=== PATIENT | male | born 1960 | race Caucasian/White ===

== ENCOUNTER 2023-08-24 10:25 | Day surgery (SDC) | payer OTHER ==
[2023-08-17 13:29] VITALS: BP 141/75
[~2023-08-24] VITALS: Ht 182.9 cm; Wt 122.7 kg
[~2023-08-24 10:25] MED LIST: ACETAMINOPHN-B1 EACH PO; ADVAIR HFA 230-12 GM; ALLOPURINOL300 MG PO; CARDIZEM CD360 MG PO; CELEBREX200 MG PO; CYMBALTA60 MG PO; FLOMAX0.4 MG PO; IBLOOD GLUCOSE TEST STRIP 1 EA TEST VI PRN; K-TAB ER20 MEQ PO; LACTATED RINGER'S 1,000 ML IV SCH; LASIX20 MG PO; LIDOCAINE HCL 1% 5 ML SDV INJ ONE; LISINOPRIL-HCT1 EAC2 PO; LYRICA150 MG PO; MIDAZOLAM HCL 5 MG/5 ML VIAL IV PRN; MILK OF MA400 MG/5 M PO; MULTI VITAMIN1 EACH PO; NEURONTIN300 MG PO; NORVASC10 MG PO; OXYBUTYNIN CHLOR5 M1 PO; PROCTOCREAM-HC30 GM; PROSCAR5 MG PO; PROTONIX40 MG PO; ROXICODONE15 MG PO; SINGULAIR10 MG PO; SPIRIVA RESPIMAT4 GM INH; SYNTHROID100 MCG PO; TELMISARTAN80 MG PO; TOPROL XL100 MG PO; TYLENOL #4; TYLENOL EXTRA500 MG PO; ULTRAM50 MG; VENTOLIN HFA18 GM INH; VIAGRA25 MG PO; ZANAFLEX4 M1 PO; ZOLOFT100 MG PO; fentaNYL citrate 100 MCG/2 ML VIAL IV PRN
[2023-08-24 11:01] LABS: BASOPHILS 0.8 % (0-2); BASOPHILS, ABSOLUTE 0 %; EOSINOPHILS, ABSOLUTE 0.1; HEMATOCRIT 43.9 % (35.0-50.0); HEMOGLOBIN 14.8 g/dL (12.0-18.0); LYMPHOCYTES 31.9 % (24-44); LYMPHOCYTES, ABSOLUTE 1.5; MCH 30.2 (27-36); MCHC 33.8 g/dl (30-36); MCV 89.5 fl (81-99); MONOCYTES 13.4 % (0-12); MONOCYTES, ABSOLUTE 0.7; NEUTROPHILS 51.9 % (39-80); NEUTROPHILS, ABSOLUTE 2.5; PLATELET COUNT 234 K/uL (140-440); RDW 14.6 (10.5-15.0)
[2023-08-24] MEDS ORDERED: ADVAIR HFA 230-12 GM INH (11:01)
[2023-08-24] MEDS ORDERED: CETIRIZINE HCL10 MG PO (11:03)
[2023-08-24 11:04] VITALS: BP 155/72
[2023-08-24] MEDS ORDERED: LIDOCAINE HCL 2% 5 ML SDV ONE (11:58)
[2023-08-24] MEDS ORDERED: propofoL 200 MG/20 ML VIAL ONE (11:58)
[2023-08-24] MEDS ORDERED: fentaNYL citrate 100 MCG/2 ML VIAL ONE (11:59)
[2023-08-24 12:12] LABS: ERYTHROCYTE SEDIMENTATION RATE 7
[2023-08-24] MEDS ORDERED: ondansetron HCL 4 MG/2 ML VIAL ONE (12:21)
--- NOTE | 2023-08-24 12:28 | NUR ---
08/24/23 Christen8 Lucy Barrera 1223-PATIENT ARRIVED TO PACU ON RA AWAKE HOB ELEVATED SEMI FOWLERS. RA 95% RR EVEN. PATIENT REPORTS BONE MARROW BX PAIN "1" BACK PAIN "3" HAS CHRONIC BACK PAIN. BILATERAL BANDAIDS TO BACK. DENIES NAUSEA. SR. IVF INFUSING
[2023-08-24 12:44] VITALS: BP 146/66
--- NOTE | 2023-08-24 14:14 | EKG ---
[facility] [address] [facility] [place] [address] Signed Normal sinus rhythm Normal ECG When compared with ECG of 14-AUG-2020 10:50, No significant change was found Confirmed by SONU SPENCER MD ([id number]) on 08/24/2023 2:14:00 PM Electronically Signed By: SONU SPENCER 08/24/23 1414 PATIENT NAME: PAULY BRADFORD Electrocardiogram DATE OF : 64 PHYSICIAN: SONU SPENCER REPORT #: [id number] REPORT IS CONFIDENTIAL AND NOT TO BE RELEASED WITHOUT AUTHORIZATION
[2023-08-25 18:01] LABS: IMMUNOGLOBULIN A 227 mg/dL (68-408); IMMUNOGLOBULIN G 1113 mg/dL (768-1632); IMMUNOGLOBULIN M 90 mg/dL (35-263); KAPPA QNT FREE LIGHT CHAINS 20.95 mg/L (3.30-19.40); KAPPA/LAMBDA FREE LIGHT CH RAT 1.11 (0.26-1.65); LAMBDA QNT FREE LIGHT CHAINS 18.81 mg/L (5.71-26.30)
[2023-08-26 23:03] LABS: ALBUMIN 4.58 g/dL (3.75-5.01); ALPHA 1 GLOBULIN 0.31 g/dL (0.19-0.46); ALPHA 2 GLOBULIN 0.71 g/dL (0.48-1.05); BETA GLOBULIN 0.87 g/dL (0.48-1.10); GAMMA 1.04 g/dL (0.62-1.51); IMMUNOFIXATION REFLEX Not Done (()); TOTAL PROTEIN,SERUM 7.5 g/dL (6.3-8.2)
--- NOTE | 2023-08-29 09:22 | PATH ---
[facility] [address] 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 - No circulating blasts are identified. Bone marrow biopsy and aspiration: - Normocellular marrow, 40%, with 1% blasts. - Trilineage hematopoiesis with no significant dyspoiesis and mild megakaryocytic hyperplasia. - Increased marrow iron stores by Prussian Blue staining. - No malignancy identified. - See diagnostic comment. DIAGNOSTIC COMMENT: The marrow is within normal limits. No malignancy or significant dyspoiesis is noted. The red marrow conversion may be secondary to a recovering marrow following a marrow insult. Clinical correlation is required. Pending studies at the time of this study include a FISH panel for MDS and a chromosome analysis. 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 PERIPHERAL BLOOD: HEMOGRAM (08/24/2023): WBC 4.9 K/ul, RBC 4.90 M/ul, HGB 14.8 g/dl, HCT 43.9%, MCV 89.5 fl, MCH 30.2 pg, MCHC 33.8 g/dl, RDW 14.6%, PLT 234 K/ul, MPV 8.3 fl. AUTOMATED DIFFERENTIAL COUNT: Neutrophils 51.9%, lymphocytes 31.9%, monocytes 13.4%, eosinophils 2.0%, basophils 0.8%. The red blood cells are normocytic and normochromic with minimal aniso-poikilocytosis. The neutrophils are unremarkable. Lymphocytes are composed of small mature appearing forms. Platelets appear normal in number and morphology with no platelet clumping or RBC PATIENT NAME: PAULY BRADFORD PATHOLOGY DATE OF : 64 REPORT #: [id number] PHYSICIAN: [facility] PCP: KAROLINE BARCENAS REPORT IS CONFIDENTIAL AND NOT TO BE RELEASED WITHOUT AUTHORIZATION [facility] [address] [place], [place] [address] Signed microangiopathic effect identified. No blasts are identified. BONE MARROW: ASPIRATE SMEARS/TOUCH IMPRINT: The aspirate smears are adequate for evaluation. Erythroid precursors appear increased in number but show adequate maturation with essentially normal morphology. The myeloid precursors show full maturation with unremarkable morphology. There is no increase in blasts. Megakaryocytes are identified with a normal morphology. BONE MARROW DIFFERENTIAL COUNT (300 cells): Blasts 1%. promyelocytes 2%, myelocytes 7%, metamyelocytes/bands/segs 28%, erythroid precursors 43%, lymphocytes 12%, monocytes 3%, eosinophils 3%, plasma cells 1%. M:E ratio: Inverted at 0.9:1 BONE MARROW CORE BIOPSY/ASPIRATE CLOT/CELL BLOCK: The aspirate clot section is borderline acceptable, mostly composed of blood with focal small marrow spicules. The core biopsy fragment is short (5 mm) and is borderline adequate for evaluation. The core biopsy demonstrates unremarkable trabecular bone. The cellularity is normal for age, estimated at 40%. The erythroid precursors are within normal limits with essentially unremarkable maturation. The myeloid precursors are unremarkable with no significant dyspoiesis. Blasts are not increased. Megakaryocytes appear mildly increased in number with a normal morphology. No granulomas, atypical lymphoid aggregates or foreign malignant cells are detected. SPECIAL STAINS (with adequate controls): - iron (aspirate smear): Increased marrow irons by Prussian Blue staining. No ring sideroblasts are identified. - iron (cell block): Focal positive for iron by Prussian Blue stain. IMMUNOHISTOCHEMISTRY STAINS (performed on block A1 with adequate controls). - CD34: 1% - CD117: 2% - CD71: 35-40% FLOW CYTOMETRY: Bone marrow, flow cytometry: - No diagnostic abnormal populations are identified by flow cytometry. - See comment. COMMENT: While no diagnostic hematopoietic abnormality is detected in this study, correlation with clinical, morphologic, and genetic findings is recommended for full interpretation and to assess for disease PATIENT NAME: PAULY BRADFORD PATHOLOGY DATE OF : 64 REPORT #: [id number] PHYSICIAN: BARRINGTON PEÑA PCP: KAROLINE BARCENAS REPORT IS CONFIDENTIAL AND NOT TO BE RELEASED WITHOUT AUTHORIZATION [facility] [address] [place], [place] [address] Signed processes not fully examined by flow cytometry analysis, including myelodysplastic syndrome or myeloproliferative neoplasm. A plasma cell gate is normal with no clonality detected. Blasts are not increased. FLOW CYTOMETRY ANALYSIS: FLOW DIFFERENTIAL (% Total CD45 vs. SSC gating): Myeloid 79%; Lymphoid 9%; Monocyte 4%; Dim CD45/Blast 1.5% Plasma Cells 0.6%. Cell Count: 1.0 x 10*4/uL. POPULATION ANALYSIS: BLASTS: Analysis of the dim CD45 gate demonstrates 1.5% myeloblasts by CD34/CD117 and 0.7% hematogones. LYMPHOID CELLS: The lymphocyte gate comprises 9% of total events and includes 81% T-cells with a CD4:CD8 ratio of 1.2:1 and normal zhu T-cell antigen expression. 9% of lymphocytes are B-cells with a kappa:lambda ratio of 1.3:1. The remainders are NK cells. MYELOID CELLS: The myeloid population comprises 79% of the total events. No aberrant immunophenotypic expression is detected. MONOCYTES: The monocyte population comprises 4% of the total events. Monocytes are not increased. No aberrant immunophenotypic expression is detected. PLASMA CELLS: There is a noted clinical concern for myeloma. For this reason, select additional antibodies are run to further characterize the plasma cells. 0.6% polytypic plasma cells are detected (n=279) expressing CD45 DIM-NEG, CD19 DIM (partial), CD38 BR, CD138 DIM and CD56 (minor subset) while negative for CD20 with a ckappa:clambda ratio of 1.8:1. Initial Antibodies Used: KAPPA, LAMBDA, CD20, CD10, CD19, CD23, CD38, CD16, CD56, CD8, CD5, CD2, CD4, CD7, CD3, CD14, CD33, CD13, HLADR, CD34, CD117, CD15, CD45. Additional Antibodies (necessary for further plasma cell analysis): ckappa, clambda, CD138. Total Antibodies Used: 26. DKW FINAL DIAGNOSIS PERFORMED BY: Polo Khan MD, Aug 25 2023 2:27PM CYTOGENETICS: Chromosome analysis is pending, and the result will be reported in an addendum. FISH ANALYSIS: A FISH panel for MDS is pending, and the result will be reported in an addendum. PATIENT NAME: PAULY BRADFORD PATHOLOGY DATE OF : 64 REPORT #: [id number] PHYSICIAN: [facility] PCP: KAROLINE BARCENAS REPORT IS CONFIDENTIAL AND NOT TO BE RELEASED WITHOUT AUTHORIZATION [facility] [address] [place], [place] [address] Signed GROSS DESCRIPTION: Two specimens are received in two containers A. The specimen, labeled and designated "Adakela, bone marrow core biopsy," is received in formalin and consists of a core of red-you bone (0.7 cm in length by up to 0.2 cm in diameter). The specimen is submitted entirely in cassette (A1) bone following decalcification in Immunocal B. The specimen, labeled and designated "Adakela, bone marrow clot biopsy," is received in formalin and consists of a portion of red-brown clot-like material (2.0 x 1.5 x 0.3 cm in aggregate). The specimen is submitted entirely in cassette (B1). VB (under the direct supervision of a pathologist) The Gross Description was prepared using a voice recognition system. The report was reviewed for accuracy; however, sound-alike word errors, addition and/or deletions may occur. If there is any question about this report, please contact Client Services. ADDITIONAL NOTES: Immunohistochemical and/or in situ hybridization studies if performed in this case included appropriate positive controls that reacted as expected. This test was developed and its performance characteristics determined by [facility]. It has not been cleared or approved by the U.S. Food and Drug Administration. The FDA has determined that such clearance or approval is not necessary. This test is used for clinical purposes. It should not be regarded as investigational or for research. [facility] is certified under the Clinical Laboratory Improvement Amendments of 1988 (CLIA) as qualified to perform high complexity clinical laboratory testing. In this case, certain antibodies were performed by both immunohistochemistry and flow cytometry analysis because flow cytometry analysis did not fully explain all the light microscopic findings. Immunohistochemistry aided in the analysis. Both methods are deemed medically necessary in this case. This test was developed and its performance characteristics determined by [facility]. It has not been cleared or approved by the US Food and Drug Administration. The FDA does not require this test to go through premarket FDA review. This test is used for clinical purposes. It should not be regarded as investigational or for research. This laboratory is certified under the Clinical PATIENT NAME: PAULY BRADFORD PATHOLOGY DATE OF : 64 REPORT #: [id number] PHYSICIAN: BARRINGTON PEÑA PCP: KAROLINE BARCENAS REPORT IS CONFIDENTIAL AND NOT TO BE RELEASED WITHOUT AUTHORIZATION [address] [address] Signed Laboratory Improvement Amendments (CLIA) as qualified to perform high complexity clinical laboratory testing. PERFORMING LABORATORY: The technical preparation was performed by [facility], [address] [place] [address] (CLIA#: [id number]). Professional interpretation was performed by [facility] - [facility], [address] [place] [id number] (CLIA#: [id number]). Technical component was performed by [facility], [address] [place] [id number] (CLIA# [id number]). Professional interpretation was performed by [facility], [address] [place] [id number] (CLIA#: [id number]). IMAGES: [id number]: [id number] A: [id number] Diagnostician: Polo Khan MD Pathologist Electronically Signed 08/29/2023 Copies: ~ PATIENT NAME: PAULY BRADFORD PATHOLOGY DATE OF : 64 REPORT #: [id number] PHYSICIAN: BARRINGTON PEÑA PCP: KAROLINE BARCENAS REPORT IS CONFIDENTIAL AND NOT TO BE RELEASED WITHOUT AUTHORIZATION
== END 2023-08-24 12:55 | disposition home or self-care (01) ==
LOC: DS 10:25 → OPS 10:25 → DS 12:00 → OPS 12:55
PROVIDERS: ATTEND Specialist
PROC: 07DR3ZX Extraction of Iliac Bone Marrow, Percutaneous Approach, Diagnostic (ICD-10-PCS; principal; 2023-08-24 12:00)
DX: D61.9 Aplastic anemia, unspecified (principal)
CPT/HCPCS: 01112; 36415; 82784; 85025; 85651; 86140; 93005; 93010; J2001; J2405; J2704; J3010; J7121